=== PATIENT | female | born 1990 | race Caucasian/White ===

== ENCOUNTER 2022-01-18 11:19 | Emergency (ER) | payer OTHER ==
[~2022-01-18] VITALS: Ht 162.6 cm; Wt 61.2 kg
--- NOTE | 2022-01-18 11:40 | NUR ---
AT BEDSIDE FOR EVALUATION.
[2022-01-18] MEDS ORDERED: IBUPROFEN 600 MG TABLET ONE (11:44)
[2022-01-18] MEDS ORDERED: IBUPROFEN 600 MG TABLET PO ONE (11:45)
--- NOTE | 2022-01-18 11:45 | NUR ---
MEDICATED FOR PAIN PER MD ORDER. FOOT XRAY DONE AT BEDSIDE.
--- NOTE | 2022-01-18 12:39 | NUR ---
TEST RESULTS REVIEWED BY MD WITH PATIENT. ORTHO BOOT APPLIED; DISCHARGE INSTRUCTIONS RENDERED BY MD PLUS INSTRUCTIONS ON FOLLOW-UP CARE.
--- NOTE | 2022-01-18 12:48 | NUR ---
CRUTCHES SUPPLIED AND CRUTCH TRAINING DONE WITH SATISFACTORY RETURN DEMO.
[2022-01-18 12:49] VITALS: BP 140/88
== END 2022-01-18 12:50 | disposition home or self-care (01) ==
LOC: ER 11:19
DX: S86.012A Strain of left Achilles tendon, initial encounter (principal); W51.XXXA Accidental striking against or bumped into by another person, initial encounter; Y93.66 Activity, soccer; Y92.322 Soccer field as the place of occurrence of the external cause
CPT/HCPCS: 73610; A4663